=== PATIENT | female | born 1955 | race Caucasian/White ===

== ENCOUNTER 2024-11-26 18:00 | Emergency (ER) | payer OTHER ==
[~2024-11-26] VITALS: Ht 172.7 cm; Wt 59.0 kg
[2024-11-26] MEDS ORDERED: KETOROLAC TROMETHAMINE 15 MG/ML VIAL ONE (18:40)
[2024-11-26] MEDS: KETOROLAC TROMETHAMINE 15 MG/ML VIAL IM ONE (18:44)
[2024-11-26] MEDS ORDERED: LIDO30AD10 TP (18:45)
[2024-11-26 19:48] VITALS: BP 125/78; TEMP 97.6; O2SAT 96
== END 2024-11-26 19:48 | disposition home or self-care (01) ==
LOC: ER 18:05
DX: M48.56XA Collapsed vertebra, not elsewhere classified, lumbar region, initial encounter for fracture (principal); W18.39XA Other fall on same level, initial encounter; Y93.89 Activity, other specified; Y92.091 Bathroom in other non-institutional residence as the place of occurrence of the external cause; Y99.8 Other external cause status
CPT/HCPCS: 99283; 96372; J1885